=== PATIENT | female | born 1945 | race Caucasian/White ===

== ENCOUNTER → 2016-06-12 | Outpatient (CLI) | payer MEDICARE, OTHER | LOC: GMAL 10:37 | PROVIDERS: ATTEND Family Medicine | DX: D51.3 Other dietary vitamin B12 deficiency anemia (principal); R53.82 Chronic fatigue, unspecified ==

== ENCOUNTER → 2016-06-19 | Outpatient (CLI) | payer MEDICARE, OTHER | END | disposition home or self-care (01) | LOC: GMAL 10:56 | PROVIDERS: ATTEND Family Medicine | DX: N39.0 Urinary tract infection, site not specified (principal) ==

== ENCOUNTER → 2016-08-28 | Outpatient (CLI) | payer MEDICARE, OTHER | END | disposition home or self-care (01) | LOC: GMAL 16:36 | PROVIDERS: ATTEND Family Medicine | DX: N39.0 Urinary tract infection, site not specified (principal) ==

== ENCOUNTER → 2016-11-05 | Outpatient (CLI) | payer MEDICARE, OTHER ==
--- NOTE | 2016-11-11 16:07 | MAM ---
EXAM DESCRIPTION: 3D Screening BILATERAL CLINICAL HISTORY: 71 yearsFemaleSCREENING. Postmenopausal. Has taken HRT.. COMPARISON: Digital 2-D screening bilateral examination 10/24/2015.. Report from prior examination also reviewed. TECHNIQUE: Bilateral CC and MLO projection full-field images, 3-D tomosynthesis digital mammographic technique. Also bilateral synthesized CC/ MLO full-field images. CAD not utilized. FINDINGS: The breast parenchymal density pattern is: Scattered areas of fibroglandular density. No skin thickening or nipple retraction bilateral solitary microcalcifications and macrocalcifications. No focal, stellate mass or density, focal asymmetry , and no suspicious microcalcifications bilaterally. Stable mammograms compared to prior study, taking into account differences in mammographic technique IMPRESSION: BI-RADS CATEGORY: 2 - BENIGN FINDINGS. FOLLOW UP: Routine digital bilateral screening, one year interval from October 2016. Written communication explaining the findings and follow-up, will be mailed to the patient and referring health care provider. According to the [employer], yearly mammograms are recommended starting at age 40 and continuing as long as a woman is in good health. Any breast change noted on a breast self-exam should be reported promptly to the patient's healthcare provider. Breast MRI is recommended for women with an approximately 20-25% or greater lifetime risk of breast cancer, including women with a strong family history of breast or ovarian cancer and women who have been treated for Hodgkin's disease. A negative mammographic report should not delay tissue diagnosis in patients with significant clinical history or physical findings. Extremely dense breast tissue limits the sensitivity of digital mammography. Electronically signed by: Andrade Saunders MD 11/11/2016 4:05 PM CDT Workstation: [id number]
== END ==
LOC: MAMMO 16:30
PROVIDERS: ATTEND Family Medicine
DX: Z12.31 Encounter for screening mammogram for malignant neoplasm of breast (principal)
CPT/HCPCS: G0202; G0279

== ENCOUNTER → 2016-12-16 | Outpatient (CLI) | payer MEDICARE, OTHER | END | disposition home or self-care (01) | LOC: GMAL 11:01 | PROVIDERS: ATTEND Family Medicine | DX: D51.3 Other dietary vitamin B12 deficiency anemia (principal) ==

== ENCOUNTER → 2017-06-23 | Outpatient (CLI) | payer MEDICARE, OTHER ==
--- NOTE | 2017-06-24 08:36 | MRI ---
EXAM DESCRIPTION: Brain w/oContrast: MRI. CLINICAL HISTORY: CEREBROVASCULAR DISEASE COMPARISON: MRI scan lumbar spine on the same visit. MRI scan of the brain 08/13/2015. TECHNIQUE: Multiplanar, high-field MRI unit, multiple diffusion sequences, multiple conventional sequences without contrast. FINDINGS: No foci of bright FLAIR and T2-weighted signal in the left frontal conteh radiata just above the basal ganglia and anterior and superior to the left basal ganglia and in the more superior left frontal lobe. Also left temporal lobe subcortical white matter and in the right frontal subcortical white matter near the vertex. No significant change since the prior study. Not associated with hemorrhage, cerebral edema, or mass effect. No diffusion restriction with these lesions.. Normal signal in the bilateral basal ganglia. No hemorrhage, no cerebral edema, no mass-effect. Similar white matter lesion versus cyst versus prominent perivascular space in the right thalamus, stable since the prior study. Normal signal in the brainstem and cerebellar hemispheres. No hemorrhage, no cerebral edema, no mass-effect. Concordance of the diffusion and non-diffusion sequences with no diffusion restriction. Cortical sulci, ventricles, and other CSF spaces, and the subdural spaces are normally configured.. No effacement or displacement. No midline shift. No extra-axial hemorrhage. Normal flow signal void in the major vessels of the [place], and the venous sinuses. IACs are symmetric bilaterally. Normal signal in the bilateral mastoid air cells. No mass effect in the bilateral cerebellopontine angles. Pituitary gland occupies the entire sella. Base of the cerebellar tonsils is is at the level of the foramen magnum. Minimal chronic mucoperiosteal thickening in the paranasal sinuses. Large terrie bullosa in the right middle turbinate. The bony calvarium is intact. IMPRESSION: 1. Signal changes in the periventricular and subcortical white matter bilaterally more left than right. Stable since the prior study. 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 No hemorrhage, mass effect, or midline shift or cerebral edema. 2. Normal noncontrast diffusion MRI scan of the brain with no evidence of acute or subacute infarction. 3. Chronic paranasal sinus abnormalities as noted. Electronically signed by: Andrade Saunders MD 06/24/2017 8:35 AM CDT
--- NOTE | 2017-06-24 08:50 | MRI ---
EXAM DESCRIPTION: Lumbar Spine w/o Contrast MRI. CLINICAL HISTORY: LUMBAR RADICULOPATHY COMPARISON: MRI scan lumbar spine without contrast 01/07/2016. TECHNIQUE: Multiplanar, multiple standard sequences, non contrast MRI, lumbar spine. FINDINGS: L5-S1: Disc desiccation with tiny bulging. No disc space loss. Mild to moderate canal narrowing. Moderate bilateral foraminal narrowing with minimal disc bulging into the foramina. Facet negative, minimal hypertrophy of the flavum ligaments. L4-5: Disc desiccation posterior midline bulge 4 mm abutting the descending nerve roots and thecal sac. Hypertrophic flavum ligaments with Moderate canal narrowing. No facet arthrosis. Bilateral mild foraminal narrowing. L3-4: Disc desiccation and minimal disc space loss with no posterior bulging. Anterior bulging and small endplate spurs. Hypertrophy left flavum ligament with facet arthrosis. Mild canal and mild foraminal narrowing bilaterally. L2-3: Disc desiccation with disc space maintained. Anterior bulging and endplate ridging. No posterior bulging. Bilateral flavum ligament hypertrophy. Facets are unremarkable. Mild canal narrowing. Bilateral foramina are patent. L1-2: Physiologic appearance of the disc. Canal and foramina are patent. Posterior elements are unremarkable. Conus terminates just above the L1-2 disc space. T12-L1: Physiologic appearance of the disc. Canal and foramina are patent. Posterior elements are negative. Paravertebral soft tissues paraspinal muscle atrophy not unusual for patient's age. No mass.. Normal marrow signal in the remaining vertebral bodies and the posterior elements. No scoliosis. Vertebral bodies are not compressed at any level. IMPRESSION: 1. Multiple levels of disc desiccation and minimal bulging. Hypertrophy of the posterior flavum ligaments. Canal and foraminal narrowing at several levels. 2. Posterior L4-5 disc bulge and hypertrophy of the flavum ligaments moderate canal narrowing bilateral mild foraminal narrowing. 3. Mild to moderate canal narrowing and tiny L5-S1 disc bulge. Disc bulge into the foramina with moderate foraminal narrowing. 4. No significant change from the prior study. Electronically signed by: Andrade Saunders MD 06/24/2017 8:49 AM CDT
== END ==
LOC: MRI 13:06
PROVIDERS: ATTEND Psychiatry & Neurology Neurology
DX: M51.16 Intervertebral disc disorders with radiculopathy, lumbar region (principal); M51.26 Other intervertebral disc displacement, lumbar region; I67.9 Cerebrovascular disease, unspecified; J32.4 Chronic pansinusitis; M79.1 Myalgia

== ENCOUNTER → 2017-07-09 | Outpatient (CLI) | payer MEDICARE, OTHER | LOC: GMAL 11:58 | PROVIDERS: ATTEND Family Medicine | DX: D51.3 Other dietary vitamin B12 deficiency anemia (principal); R41.82 Altered mental status, unspecified ==

== ENCOUNTER → 2017-08-17 | Outpatient (CLI) | payer MEDICARE, OTHER | LOC: GMAL 10:37 | PROVIDERS: ATTEND Family Medicine | DX: E55.9 Vitamin D deficiency, unspecified (principal) ==

== ENCOUNTER → 2017-12-21 | Outpatient (CLI) | payer MEDICARE, OTHER | LOC: GMAL 11:59 | PROVIDERS: ATTEND Family Medicine | DX: R53.82 Chronic fatigue, unspecified (principal) ==

== ENCOUNTER → 2018-12-20 | Outpatient (CLI) | payer MEDICARE, OTHER ==
--- NOTE | 2018-12-21 17:10 | MAM ---
EXAM DESCRIPTION: 3D Screening BILATERAL : Digital Mammography. CLINICAL HISTORY: 73 years Female SCREEN history sheet. Lifetime risk of developing breast cancer (Tyrer-Cuzick model)(%): Not calculated COMPARISON: prior. No prior reports available. TECHNIQUE: Bilateral CC and MLO projection full-field images, digital tomosynthesis mammographic technique. Bilateral digital 2-D full-field MLO images. CAD not available for tomosynthesis or 2-D images. FINDINGS: The breast parenchymal density pattern is: Heterogeneously dense breast tissue, which may obscure small masses. No skin thickening or nipple retraction. Bilateral vascular calcifications and bilateral solitary microcalcifications. No new focal, stellate mass or density, focal asymmetry , and no suspicious microcalcifications bilaterally. Stable mammograms compared to prior study. IMPRESSION: Benign exam. BIRAD CATEGORY: 2 BENIGN FINDINGS. RECOMMENDATIONS: FOLLOW UP: Routine digital bilateral mammographic screening, one year interval from December 2018. Written communication explaining the IMPRESSION and follow-up, will be mailed to the patient and referring health care provider. According to the [employer], yearly mammograms are recommended starting at age 40 and continuing as long as a woman is in good health. Any breast change noted on a breast self-exam should be reported promptly to the patient's healthcare provider. Breast MRI is recommended for women with an approximately 20-25% or greater lifetime risk of breast cancer, including women with a strong family history of breast or ovarian cancer and women who have been treated for Hodgkin's disease. A negative mammographic report should not delay tissue diagnosis in patients with significant clinical history or physical findings. Extremely dense breast tissue limits the sensitivity of digital mammography. Electronically signed by: Andrade Saunders MD 12/21/2018 5:08 PM CDT
== END ==
LOC: MAMMO 09:00
PROVIDERS: ATTEND Family Medicine
DX: Z12.31 Encounter for screening mammogram for malignant neoplasm of breast (principal)

== ENCOUNTER → 2019-12-26 | Outpatient (CLI) | payer MEDICARE, OTHER ==
--- NOTE | 2019-12-27 16:17 | MAM ---
EXAM DESCRIPTION: 3D Screening BILATERAL : Digital Mammography. CLINICAL HISTORY: 74 years Female ANNUAL SCREENING . No complaints and no family history of breast cancer. Menarche age 14. Childbirth age 31. Postmenopausal age unknown. No HRT. Lifetime risk of developing breast cancer (Tyrer-Cuzick model)(%): 5.9. COMPARISON: Bilateral screening digital breast tomosynthesis December 2018 and November 2017. TECHNIQUE: Bilateral CC and MLO projection full-field images, digital tomosynthesis mammographic technique. Bilateral digital 2-D full-field MLO images. CAD available for 2-D images. FINDINGS: The breast parenchymal density pattern is: Heterogeneously dense breast tissue, which may obscure small masses. No skin thickening or nipple retraction. Bilateral solitary microcalcifications. Skin mole markers. No new focal, stellate mass or density, focal asymmetry , and no suspicious microcalcifications bilaterally. Stable mammograms compared to prior study. IMPRESSION: Benign exam. BIRAD CATEGORY: 2 BENIGN FINDINGS. RECOMMENDATIONS: FOLLOW UP: Routine digital bilateral mammographic screening, one year interval from December 2019. Written communication explaining the IMPRESSION and follow-up, will be mailed to the patient and referring health care provider. According to the [employer], yearly mammograms are recommended starting at age 40 and continuing as long as a woman is in good health. Any breast change noted on a breast self-exam should be reported promptly to the patient's healthcare provider. Breast MRI is recommended for women with an approximately 20-25% or greater lifetime risk of breast cancer, including women with a strong family history of breast or ovarian cancer and women who have been treated for Hodgkin's disease. A negative mammographic report should not delay tissue diagnosis in patients with significant clinical history or physical findings. Extremely dense breast tissue limits the sensitivity of digital mammography. Electronically signed by: Andrade Saunders MD 12/27/2019 4:15 PM CDT
== END ==
LOC: MAMMO 08:00
PROVIDERS: ATTEND Family Medicine
DX: Z12.31 Encounter for screening mammogram for malignant neoplasm of breast (principal)

== ENCOUNTER → 2020-01-02 | Outpatient (CLI) | payer MEDICARE, OTHER | LOC: GMAL 10:59 | PROVIDERS: ATTEND Family Medicine | DX: R53.82 Chronic fatigue, unspecified (principal); Z79.899 Other long term (current) drug therapy; E78.49 Other hyperlipidemia ==

== ENCOUNTER → 2020-01-30 | Outpatient (CLI) | payer MEDICARE, OTHER ==
--- NOTE | 2020-01-30 15:41 | RAD ---
EXAM DESCRIPTION: Hand,Left 3 Views CLINICAL HISTORY: 75 years Female, HAND PAIN LEFT COMPARISON: None. TECHNIQUE: 3 view radiograph of the left hand. IMPRESSION: No acute displaced fracture. No dislocation. Mild arthrosis about the interphalangeal joints and carpal bones. MCP joints predominantly maintained. No erosion. Minimal positive ulnar variance of 1 to 2 mm. Unremarkable soft tissues. Electronically signed by: Norberto Dominguez MD 01/30/2020 3:39 PM CDT
== END ==
LOC: RAD 07:49
PROVIDERS: ATTEND Orthopaedic Surgery
DX: M19.042 Primary osteoarthritis, left hand (principal); M24.832 Other specific joint derangements of left wrist, not elsewhere classified

== ENCOUNTER → 2020-02-06 | Outpatient (CLI) | payer MEDICARE, OTHER | LOC: GMAL 14:27 | PROVIDERS: ATTEND Family Medicine | DX: E53.8 Deficiency of other specified B group vitamins (principal); I10 Essential (primary) hypertension; E55.9 Vitamin D deficiency, unspecified; R73.9 Hyperglycemia, unspecified; E78.49 Other hyperlipidemia ==

== ENCOUNTER → 2020-02-20 | Outpatient (CLI) | payer MEDICARE, OTHER | LOC: GMAL 14:57 | PROVIDERS: ATTEND Family Medicine | DX: N30.00 Acute cystitis without hematuria (principal) ==

== ENCOUNTER → 2020-05-14 | Outpatient (CLI) | payer MEDICARE, OTHER ==
--- NOTE | 2020-05-14 12:14 | MRI ---
EXAM DESCRIPTION: Lumbar Spine w/o Contrast CLINICAL HISTORY: 75 years Female, RADICULOPATHY COMPARISON: MRI lumbar spine 06/23/2017. TECHNIQUE: Multisequence, multiplanar images of the lumbar spine without intravenous contrast. FINDINGS: For the purpose of this report, the designated L5-S1 disc space will be referred to as axial T2 image 2, series 501. Vertebrae: No acute fracture. Moderate lordosis centered at L4. Slight dextrocurvature centered at L4. Normal AP alignment. No suspicious marrow signal. Spinal cord: Termination of the conus medullaris at T12-L1. Normal nerve roots of the cauda equina. Discs, facets, spinal canal, and neural foramina: Disc desiccation at L2-3 and below. Mild disc displacement L2-3 and L3-4. L1-L2: No disc bulge. Mild facet arthropathy. No stenosis. L2-3: Minimal disc bulge. Moderate facet arthropathy. Spinal canal patent. Mild bilateral neural foraminal stenosis. L3-4: Minimal disc bulge. Moderate facet arthropathy. Spinal canal patent. Mild bilateral neural foraminal stenosis. L4-5: Minimal disc bulge. Severe facet arthropathy and moderate ligament flavum hypertrophy. Moderate spinal canal stenosis. Moderate bilateral neural foraminal stenosis. L5-S1: Small disc bulge eccentric towards the right neuroforamen. Severe facet arthropathy. Spinal canal patent. Mild bilateral neural foraminal space. Paraspinous soft tissues: Unremarkable. IMPRESSION: 1. No acute fracture. 2. Lumbar spondylosis as above. Electronically signed by: Norberto Dominguez MD 05/14/2020 12:13 PM [facility]
== END ==
LOC: MRI 07:52
PROVIDERS: ATTEND Family Medicine
DX: M51.16 Intervertebral disc disorders with radiculopathy, lumbar region (principal)